=== PATIENT | male | born 1985 | race African-American/Black ===

== ENCOUNTER 2017-03-29 05:53 | Emergency (ER) | payer BC ==
[~2017-03-29] VITALS: Ht 172.7 cm; Wt 83.9 kg
[2017-03-29 06:00] VITALS: BP 159/88
[2017-03-29] MEDS ORDERED: Sodium Chloride 500ML 500 ML IV ONE (06:27)
--- NOTE | 2017-03-29 06:27 | Emergency Room Report ---
History of Present Illness General Chief Complaint: General Complaint Source: Patient Present Illness HPI Patient is a 31-year-old male presented after increased anxiety palpitations. Patient states he had recently been drinking alcohol and as well as smoke marijuana. The patient denies any IV drug use. He states that he been having increased anxiety and palpitations. He denied any chest pain or shortness of breath. He reported having recent upper respiratory infection. He feels as a somewhat he may have spiked his drink. The patient states he took medication for her erectile dysfunction Allergies: Coded Allergies: SULFA (SULFONAMIDE ANTIBIOTICS) (Verified Allergy, Unknown, 03/29/17) Patient History Past Medical History: see triage record Reviewed Nursing Documentation: PMH: Agreed, PSxH: Agreed Nursing Documentation-PMH Past Medical History: No Stated History Review of Systems All Other Systems: negative except mentioned in HPI Physical Exam Vital Signs Date Time Temp Pulse Resp B/P (MAP) Pulse Ox O2 Delivery O2 Flow Rate FiO2 03/29/17 05:56 98.2 126 22 163/85 98 Room Air Sp02 EP Interpretation: reviewed, normal General Appearance: normal inspection, well appearing, no apparent distress, alert, GCS 15, non-toxic Head: atraumatic ENT: normal ENT inspection, hearing grossly normal, normal voice Neck: normal inspection, full range of motion, supple, no bony tend Respiratory: normal inspection, lungs clear, normal breath sounds, no respiratory distress, no retraction, no wheezing Cardiovascular #1: no edema, tachycardia Gastrointestinal: normal inspection, normal bowel sounds, non tender, soft, no guarding, no hernia Genitourinary: no CVA tenderness Musculoskeletal: normal inspection, back normal, normal range of motion Neurologic: normal inspection, alert, responsive, speech normal Psychiatric: judgement/insight normal, mood/affect normal, anxious Skin: normal inspection, normal color, no rash Medical Decision Making Diagnostic Impression: Primary Impression: Substance abuse Additional Impressions: Anxiety Rhabdomyolysis Hypokalemia ER Course Patient presented for palpitations. The differential diagnosis included was not limited to arrhythmia, thyroid storm, sepsis, anemia, myocardial infarction , alcohol withdrawal, stimulant abuse, caffeine overdose among others. The patient given IV fluids as well as IV Ativan. Laboratory studies were notable for hypokalemia as well as for a slightly elevated CPK. Patient was given oral potassium. The patient noted have some improvement in his tachycardia. Patient was noted to have improvement in his symptoms. Patient said he felt better and wanted to go home. Patient recently stable for oral rehydration. The patient is advised to have his laboratory testing recheck in the next one to 2 days. He was advised to return if his urine became discolored, he had decreased output of urine or other concernsThe patient is advised to follow up with primary care doctor in 1-2 days. Patient is advised to return if any worsening condition or if any changes in status that are concerning. This report is dictated with [employer] underwriting internship software which may occasionally lead to discrepancies related to use of this software. Labs Test 03/29/17 06:23 03/29/17 06:48 Urine Opiates Screen Negative (NEGATIVE) Urine Barbiturates Screen Negative (NEGATIVE) Phencyclidine (PCP) Screen Negative (NEGATIVE) Urine Amphetamines Screen Negative (NEGATIVE) Urine Benzodiazepines Screen Negative (NEGATIVE) Urine Cocaine Screen Negative (NEGATIVE) Urine Marijuana (THC) Screen Positive (NEGATIVE) White Blood Count 8.9 K/UL (4.8-10.8) Red Blood Count 4.98 M/UL (4.70-6.10) Hemoglobin 13.9 G/DL (14.2-18.0) Hematocrit 41.6 % (42.0-52.0) Mean Corpuscular Volume 83 FL (80-99) Mean Corpuscular Hemoglobin 27.9 PG (27.0-31.0) Mean Corpuscular Hemoglobin Concent 33.4 G/DL (32.0-36.0) Red Cell Distribution Width 12.0 % (11.6-14.8) Platelet Count 351 K/UL (150-450) Mean Platelet Volume 5.2 FL (6.5-10.1) Neutrophils (%) (Auto) 82.7 % (45.0-75.0) Lymphocytes (%) (Auto) 9.3 % (20.0-45.0) Monocytes (%) (Auto) 7.6 % (1.0-10.0) Eosinophils (%) (Auto) 0.0 % (0.0-3.0) Basophils (%) (Auto) 0.5 % (0.0-2.0) Sodium Level 136 MMOL/L (136-145) Potassium Level 3.0 MMOL/L (3.5-5.1) Chloride Level 97 MMOL/L (98-107) Carbon Dioxide Level 20 MMOL/L (21-32) Anion Gap 19 mmol/L (5-15) Blood Urea Nitrogen 12 mg/dL (7-18) Creatinine 1.4 MG/DL (0.55-1.30) Estimat Glomerular Filtration Rate > 60 mL/min (>60) Glucose Level 166 MG/DL (74-106) Calcium Level 8.6 MG/DL (8.5-10.1) EKG Diagnostic Results Rate: tachycardiac Rhythm: NSR ST Segments: no acute changes Last Vital Signs Date Time Temp Pulse Resp B/P (MAP) Pulse Ox O2 Delivery O2 Flow Rate FiO2 03/29/17 06:00 98.2 135 22 159/88 98 Room Air Status: improved Disposition: HOME, SELF-CARE Condition: Stable Referrals: NOT CHOSEN JOHN/,REFERRING (PCP) Tutu Robb Mar 29, 2017 06:27
[2017-03-29] MEDS ORDERED: LORazepam Inj 2mg/ml 1ml IV ONE (06:30)
[2017-03-29 07:07] LABS: BASOPHILS % (AUTO) 0.5 % (0.0-2.0); HEMATOCRIT 41.6 % (42.0-52.0); HEMOGLOBIN 13.9 G/DL (14.2-18.0); LYMPHOCYTES % (AUTO) 9.3 % (20.0-45.0); MEAN CORPUSCULAR VOLUME 83 FL (80-99); MONOCYTES % (AUTO) 7.6 % (1.0-10.0); NEUTROPHILS % (AUTO) 82.7 % (45.0-75.0); PLATELET COUNT 351 K/UL (150-450); RED BLOOD COUNT 4.98 M/UL (4.70-6.10); WHITE BLOOD COUNT 8.9 K/UL (4.8-10.8)
[2017-03-29 07:17] LABS: ANION GAP 19 mmol/L (5-15); BLOOD UREA NITROGEN 12 mg/dL (7-18); CALCIUM 8.6 MG/DL (8.5-10.1); CARBON DIOXIDE 20 MMOL/L (21-32); CHLORIDE 97 MMOL/L (98-107); CREATININE 1.4 MG/DL (0.55-1.30); SODIUM 136 MMOL/L (136-145)
[2017-03-29 07:18] VITALS: BP 159/88
[2017-03-29 07:31] LABS: ALANINE AMINOTRANSFERASE 58 U/L (12-78); ALBUMIN 4.5 G/DL (3.4-5.0); ALKALINE PHOSPHATASE 50 U/L (46-116); ASPARTATE AMINO TRANSFERASE 70 U/L (15-37); BILIRUBIN,TOTAL 0.4 MG/DL (0.2-1.0); CKMB 25.3 NG/ML (0.0-3.6); CREATINE KINASE 1613 U/L (26-308)
--- NOTE | 2017-03-29 08:28 | Diagnostic Imaging Report ---
Indication: Shortness of breath Technique: XRAY Chest 1v Comparison: None Findings: Heart size and mediastinal contours are within normal limits given technique. There is no focal consolidation, pneumothorax or pleural effusion. Mild scoliosis, possibly positional. No acute osseous abnormality seen. Impression: No radiographic evidence of acute cardiopulmonary disease.
[2017-03-29 08:52] VITALS: BP 128/74
[2017-03-29 09:54] VITALS: BP 128/74
--- NOTE | 2017-04-02 19:30 | Cardiology Report ---
APPROVED REPORT EKG Measurement Heart [id number] Sinus tachycardia Otherwise normal ECG
== END 2017-03-29 09:55 | disposition home or self-care (01) ==
LOC: EMR 06:19
DX: F19.10 Other psychoactive substance abuse, uncomplicated (principal); F41.9 Anxiety disorder, unspecified; M62.82 Rhabdomyolysis; E87.6 Hypokalemia
CPT/HCPCS: 36415; 71010; 80053; 80307; 82550; 82553; 84484; 85025; 93005; 96361; 96374; 99284; J7040; J8499